=== PATIENT | female | born 1945 | race Caucasian/White ===

== ENCOUNTER → 2017-01-25 | Outpatient (CLI) | payer MEDICARE, OTHER ==
[~2017-01-25] MED LIST: CONTRAST GIVEN MC PRN; IOHEXOL 240 MG/ML 50ML VIAL. PO ONE; IOHEXOL 300 MG/ML 75 ML VIAL IV ONE
[2017-01-25 13:33] LABS: CREATININE 0.6 mg/dL (0.6-1.0); GFR 98.3
--- NOTE | 2017-01-25 15:25 | RAD ---
Exam performed: CT abdomen pelvis with contrast. History: Abdominal pain and nausea, history of diverticulitis. Date of service: 01/25/17. Comparison: None available Technique: Contiguous helical acquisitions are obtained through the abdomen and pelvis during intravenous administration of 75 cc of Omnipaque 300. Sagittal and coronal reformatted images are obtained. Findings: Extensive colonic diverticulosis is seen. There is a short segment of descending colon demonstrating wall thickening and diffuse inflammatory changes. The lung bases are clear. Visualized heart is normal. The liver, spleen and pancreas appear normal. The gallbladder is surgically absent. Both adrenal glands and bilateral kidneys are normal in size with symmetric excretion of contrast from both kidneys. No hydronephrosis or nephrolithiasis seen. Diffuse atheromatous aortic calcification is noted. Small bowel loops are nondilated and unremarkable. Normal ileocecal junction is seen. Appendix is not clearly identified. No inflammatory changes are seen in the right lower quadrant. The urinary bladder is distended and unremarkable. The uterus is likely surgically absent. No adnexal masses seen. There is grade 1 anterolisthesis of L4 over L5 with mild spondylotic changes. Impression: 1. Diffuse colonic diverticulosis with inflammatory changes in relation to the distal descending colon likely acute diverticulitis. Follow-up exams after resolution of symptoms/colonoscopy may be obtained to rule out remote possibility of underlying colonic neoplasm. PQRS Compliance Statement: One or more of the following individualized dose reduction techniques were utilized for this examination: 1. Automated exposure control 2. Adjustment of the mA and/or kV according to patient size 3. Use of iterative reconstruction technique
== END | disposition home or self-care (01) ==
LOC: CT 12:47
PROVIDERS: ATTEND Family Medicine
DX: R10.9 Unspecified abdominal pain (principal); Z87.19 Personal history of other diseases of the digestive system
CPT/HCPCS: 36415; 74177; 82565; Q9966; Q9967

== ENCOUNTER → 2018-04-09 | Outpatient (CLI) | payer MEDICARE, OTHER | END | disposition home or self-care (01) | LOC: KCIC 11:23 | DX: M25.511 Pain in right shoulder (principal) | CPT/HCPCS: 73000 ==